=== PATIENT | male | born 1955 | race Hispanic/Latino ===

== ENCOUNTER → 2023-05-26 12:06 | Outpatient (CLI) | payer OTHER, SELFPAY ==
[2023-05-30 08:52] LABS: PSA Free % 19.8 % (.); PSA, Total 12.5 ng/mL (0.0-4.0)
== END ==
PROVIDERS: PCP Podiatrist Foot & Ankle Surgery; Referring Provider Specialist; Visit Provider Specialist
DX: N40.1 Benign prostatic hyperplasia with lower urinary tract symptoms (principal); N13.8 Other obstructive and reflux uropathy; R97.20 Elevated prostate specific antigen [PSA]
CPT/HCPCS: 36415; 81002; 84153; 84154

== ENCOUNTER → 2023-07-22 11:08 | Outpatient (CLI) | payer OTHER, SELFPAY ==
[2023-07-24 11:42] LABS: PSA Free % 17.5 % (.); PSA, Total 8.4 ng/mL (0.0-4.0)
== END ==
PROVIDERS: Referring Provider Specialist; Visit Provider Specialist
DX: N40.1 Benign prostatic hyperplasia with lower urinary tract symptoms (principal); N13.8 Other obstructive and reflux uropathy; R97.20 Elevated prostate specific antigen [PSA]
CPT/HCPCS: 36415; 51798; 81002; 84153; 84154

== ENCOUNTER → 2023-08-25 09:50 | Outpatient (CLI) | payer OTHER, SELFPAY ==
--- NOTE | 2023-08-25 09:51 | DI.MRI.S_ITS ---
PROCEDURE: MR PELIS WO/W CON INDICATIONS: Evaluate and treat TECHNIQUE: Coronal HASTE, axial T1 FSE with fat saturation, 3-plane nonbreath-hold T2 FSE. After the administration of contrast, dynamic axial, delayed axial and coronal VIBE or 2-D FLASH with fat saturation through the pelvis. Diffusion weighted imaging and ADC was performed. COMPARISON: None. FINDINGS: Image quality: Diffusion weighted and dynamic contrast enhanced images are diagnostic. Prostate: Gland size is 4.2 x 5.2 x 5.1 cm; ellipsoid gland volume is 58 mL. T1 hyperintense signal within the right seminal vesicle. Lesion 1: Location: Anterior transition zone at the apex, on axial series 4, image 20 and coronal series 6, image 13. Size: 0.8 x 0.6 cm cm. T2W signal: Hypointense, non capsulated. DWI signal: Markedly hyperintense. ADC signal: Markedly hypointense. Enhancement: Yes. Extracapsular extension: No. No neurovascular involvement. PI-RADS score: 4 Genitourinary system: Bladder wall thickness is normal. Distal ureters are non distended. Bowel and peritoneum: No pathologic free pelvic fluid. Inferior colon and small bowel loops are normal in caliber. Nodes and vessels: No pelvic or inguinal adenopathy by size criteria. Iliac vessels are normal in caliber. Soft tissues: Left inguinal hernia repair. Bones: Marrow demonstrates normal overall signal, without lesions to suggest metastases. IMPRESSION: PI-RADS 4 lesion in the anterior transition zone of the apex. No pelvic lymphadenopathy by size criteria. No aggressive osseous abnormality. Dictated by: Jesus Abarca M.D. on 08/25/2023 at 14:47 Approved by: Jesus Abarca M.D. on 08/25/2023 at 15:07
== END ==
LOC: MRI 09:51
PROVIDERS: Referring Provider Specialist; Visit Provider Specialist
DX: N40.1 Benign prostatic hyperplasia with lower urinary tract symptoms (principal); N13.8 Other obstructive and reflux uropathy; N42.9 Disorder of prostate, unspecified; R97.20 Elevated prostate specific antigen [PSA]
CPT/HCPCS: 72197; A9579